=== PATIENT | male | born 1985 | race Two or more races ===

== ENCOUNTER 2020-12-30 09:34 | Outpatient (REF) | payer MEDICAID, SELFPAY | END 2020-12-30 09:35 | disposition home or self-care (01) | LOC: HO.LAB 09:34 | PROVIDERS: Visit Provider Internal Medicine | DX: Z20.822 Contact with and (suspected) exposure to COVID-19 (principal) | CPT/HCPCS: C9803; U0003; U0005 ==

== ENCOUNTER 2023-01-20 01:27 | Emergency (ER) | payer MEDICAID, SELFPAY ==
[2023-01-20 01:28] VITALS: BP 143/92; PULSE 81; RESP 17; TEMP 36.9; O2SAT 98; BMI 28.7
[2023-01-20 02:43] VITALS: BP 117/77; PULSE 80; RESP 16; TEMP 36.8; O2SAT 98
--- NOTE | 2023-01-20 03:31 | ED_ITS ---
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 Related Data Previous Rx's Medication Instructions Recorded cyclobenzaprine 5 mg tablet 5 mg PO BEDTIME PRN muscle spasm 01/20/23 #4 tabs Allergies Allergy/AdvReac Type Severity Reaction Status Date / Time No Known Allergies Allergy Unverified 01/07/20 17:36 Review of Systems Review of Systems: Pertinent positives and negatives as stated in HPI [facility] Past Medical History Source: nursing notes reviewed Social History Social History Advance Directives: No Advance Directives Information Provided: Yes Physical Exam Vital Signs: Vital Signs: Last Vital Signs Temp 98.2 F 01/20/23 02:43 Pulse 80 01/20/23 02:43 Resp 16 01/20/23 02:43 BP 117/77 01/20/23 02:43 Pulse Ox 98 01/20/23 02:43 O2 Del Method Room Air 01/20/23 02:43 BMI result Body Mass Index 28.7 VITAL SIGNS: Reviewed. GENERAL: Well developed, well nourished, in no acute distress. HEAD: Normocephalic/atraumatic EYES: PERRLA, EOMI EARS: Ext canals without abnormality NOSE: Nares patent bilateral OROPHARYNX: no oral lesions noted, posterior pharynx clear NECK: Supple, no adenopathy LUNGS: Normal breath sounds. No adventitious sounds or accessory muscle use. SpO2<98> CARDIOVASCULAR: Regular rate and rhythm without noted murmurs ABDOMEN: Soft, non-tender, non-distended with bowel sounds. BACK: No midline vertebral tenderness or step-offs. MUSCULOSKELETAL: No tenderness, deformities, or effusions noted on gross inspection. EXTREMITIES: No cyanosis, clubbing or edema. SKIN: Inspection of the skin reveals no rashes NEUROLOGIC: Alert and oriented x 4. Strength and sensation to light touch were grossly intact x 4. Medical Decision Making Medical Decision Making MDM Narrative: [age] old male with history and clinical presentation most consistent with acute on chronic lower back pain without concerning symptoms for cauda equina or spinal abscess. Patient received combination analgesics to include a lidocaine patch. He will be discharged on a complete regimen of pain control muscle spasm medication and instructed to establish care with a primary care provider at his earliest convenience. Differential Diagnosis Differential Diagnoses: The differential diagnosis associated with the presentation includes Please see the discussion above Admission/Observation Consideration of admission/observation: Escalation of care including admission/observation considered Please see the discussion above Discharge Plan Discharge Clinical Impression: Acute exacerbation of chronic low back pain Patient Disposition: Home, Self-Care Instructions: Back Pain (ED), Lower Back Exercises (ED) Additional Instructions: 1. Tylenol 1000 mg, por v?a oral, cada 6 horas seg?n sea necesario para controlar el dolor. No exceda los 4000 mg en 24 horas. 2. Parche de lidoca?na, apl?quelo en el ?erlin de m?xima sensibilidad chandrika se indica en el paquete exterior. 3. Establezca atenci?n con un m?dico de atenci?n primaria lo antes posible. No dude en regresar si experimenta fiebre, escalofr?os, dificultad para orinar o debilidad en las piernas. 1. Tylenol 1000 mg, orally, every 6 hours as needed for pain control. Do not exceed 4000 mg within 24 hours. 2. Lidocaine patch, apply to area of maximal tenderness as directed on the outside packaging. 3. Please establish care with a primary care doctor at your earliest convenience. Do not hesitate to return should you experience any fever, chills, difficulty urination, leg weakness. Prescriptions: New cyclobenzaprine 5 mg tablet 5 mg PO BEDTIME PRN (Reason: muscle spasm) Qty: 4 0RF Print Language: Slovenian
[2023-01-20] MEDS: Ketorolac Tromethamine 15 MG/ML VIAL IM (04:01)
[2023-01-20] MEDS: Lidocaine 4 % Patch ADH..PATCH 1 PATCH TRANSDERMA (04:01)
[2023-01-20] MEDS: Acetaminophen 325 MG TABLET 975 MG PO (04:01)
== END 2023-01-20 04:25 | disposition home or self-care (01) ==
PROVIDERS: Emergency Provider Student in an Organized Health Care Education/Training Program
DX: M54.50 Low back pain, unspecified (principal)
CPT/HCPCS: 96372; 99283; 99284; J1885

== ENCOUNTER 2023-10-23 16:01 | Emergency (ER) | payer OTHER, SELFPAY ==
[2023-10-23 16:35] VITALS: BP 141/94; PULSE 84; RESP 16; TEMP 36.5; O2SAT 98; BMI 29.8
--- NOTE | 2023-10-23 16:36 | ED.GENADULT ---
HPI - General Adult General Chief complaint: Back Pain/Injury Stated complaint: back pain Time Seen by Provider: 10/23/23 16:39 Source: patient Mode of arrival: ambulatory Limitations: no limitations History of Present Illness ED Provider: WILIAM Hutson HPI narrative: 38 year old male no known medical issues presents w/ concerns of back pain particullarly right sided lower back to rle just above the knee. Pain is sever /. No changes in urination or bowel habits. No nausea, vomiting, cp, sob, fevers, chills, numbness, tingling, or a/c trauma. No saddle anesthesias. No hx of IVDA, or malignancy Related Data Previous Rx's ?Medication ?Instructions ?Recorded cyclobenzaprine 5 mg tablet 5 mg PO BEDTIME PRN muscle spasm 01/20/23 #4 tabs ketorolac 10 mg tablet 10 mg PO TID PRN pain 5 days #15 10/23/23 tabs lidocaine 5 % topical patch 1 patch topical DAILY PRN pain #15 10/23/23 ea prednisone 20 mg tablet 40 mg (2 x 20 mg) PO DAILY 5 days 10/23/23 #10 tabs Allergies Allergy/AdvReac Type Severity Reaction Status Date / Time No Known Allergies Allergy Verified 10/23/23 16:37 Review of Systems Review of Systems: Constitutional : No Weight loss, No Fever, No Chills, ENT/Mouth : No Hearing loss, No Ear Pain, No Nasal Congestion, No Sinus Pain, No Hoarseness, No sore throat, No Rhinorrhea, No Swallowing Difficulty Cardiovascular : No Chest Pain, No SOB Respiratory : No Cough, No Dyspnea Gastrointestinal : No Nausea, No Vomiting, No Diarrhea, No abdominal Pain, No Hematochezia, No Melena Genitourinary : No Dysuria, No Urinary Frequency, No Hematuria, No Urinary Incontinence, Musculoskeletal : positive back pain Skin : No Skin Lesions, No rash Neuro : No Weakness, No Numbness, No Paresthesias, no loss of bowel or bladder incontinence, no saddle anesthesia Yes all other systems are reviewed and are negative Physical Exam ED Vital Signs: Vital Signs - 24 hr 10/23/23 16:35 Temperature 97.7 F Pulse Rate 84 Respiratory Rate 16 Blood Pressure 141/94 H Pulse Oximetry 98 Oxygen Delivery Method Room Air BMI result Body Mass Index 29.8 vss Appearance: Alert.? Oriented X3.? No acute distress.? Head: Normocephalic, atraumatic, no step-offs or deformities Eyes: Pupils equal, round and reactive to light.? Neck: Normal inspection.? Neck supple.? CVS: Normal heart rate and rhythm.? Pulses normal.? Respiratory: No respiratory distress.? Breath sounds normal.? Abdomen: Soft and nontender.? Skin: Skin warm and dry.? Normal skin color.? Normal skin turgor.? Extremities: No lower extremity edema.? No calf ttp. 5/5 strength to bilateral upper and lower extremities Back: No midline tenderness, no C-spine tenderness, full range of motion, no CVA tenderness bilaterally + right sided lumbar paraspinous muscle ttp on exam Neuro: Oriented X 3.? No motor deficit.? No sensory deficit. CN 2-12 intact. Ambulatory w/ o issues. No saddle anesthesias Course Course Course Narrative: This is an RME done by WILIAM Hutson: Additional HPI, ROS, PE not included below will be deferred to primary provider. 38 year old male no known medical issues presents w/ concerns of back pain particullarly right sided lower back to rle just above the knee. Pain is sever 10/10. No changes in urination or bowel habits. No nausea, vomiting, cp, sob, fevers, chills, numbness, tingling, or a/c trauma. Reevaluation(s) Reevaluation #1: Xray pending. Patient medicated for pain. Medical Decision Making Medical Decision Making [facility] Narrative: 38 yo m presents w/ right sided back pain w/ radiation to RLE X months PE- + right sided lumbar paraspinous muscle ttp on exam Ambulatory w/ o issues. No saddle anesthesias Hx and pe concerning for lumbar radiculopathy vs sciatica vs herniated disc. Unlikely cord compression, epidural abscess, cauda equina Plan- pain control, patient requesting xrays, dc w/ follow up Differential Diagnosis Differential Diagnoses: The differential diagnosis associated with the presentation includes Hx and pe concerning for lumbar radiculopathy vs sciatica vs herniated disc. Unlikely cord compression, epidural abscess, cauda equina Admission/Observation Consideration of admission/observation: Escalation of care including admission/observation considered consudered but not needed Independent Interpretation I performed an independent interpretation of an: Plain X-Ray Radiology Impression Discussion of test interpretation with radiology: I have reviewed the radiologist's reading. External Record Review External record reviewed: Outpatient record Prescription Management I considered prescription management with: Pain Medication (Ketoralc, lido patch ) Chronic Conditions Denies Discharge Plan Discharge Clinical Impression: Lumbar radiculopathy Patient Disposition: Home, Self-Care Instructions: Lumbar Radiculopathy (ED), Back Pain (ED) Additional Instructions: Take your medications as prescribed. If you were prescribed antibiotics today, it is important that you take your medication to their entirety, do not skip any doses, do not finish them early. Follow-up with your primary care provider this week. Return to the emergency department with new or worsening symptoms. In case of emergency call 911 Prescriptions: New prednisone 20 mg tablet 40 mg PO DAILY 5 Days Qty: 10 0RF ketorolac 10 mg tablet 10 mg PO TID PRN (Reason: pain) 5 Days Qty: 15 0RF lidocaine 5 % adhesive patch,medicated 1 patch topical DAILY PRN (Reason: pain) Qty: 15 0RF Rx Instructions: leave on most painful area for up to 12 hrs No Action cyclobenzaprine 5 mg tablet 5 mg PO BEDTIME PRN (Reason: muscle spasm) Qty: 4 0RF Referrals: [facility] [Provider Group] - 1 week Print Language: Greenlandic
[2023-10-23] MEDS: Lidocaine 4 % Patch ADH..PATCH 2 PATCH TRANSDERMA (16:45)
[2023-10-23] MEDS: Ketorolac Tromethamine 30 MG/ML VIAL IM (16:46)
[2023-10-23 16:49] VITALS: BP 141/94; PULSE 84; RESP 16; TEMP 36.5; O2SAT 98
== END 2023-10-23 16:50 | disposition home or self-care (01) ==
LOC: HO.ED 16:44
PROVIDERS: Emergency Provider Emergency Medicine
DX: M54.16 Radiculopathy, lumbar region (principal); M54.50 Low back pain, unspecified
CPT/HCPCS: 96372; 99283; 99284; J1885